=== PATIENT | male | born 1980 | race Two or more races ===

== ENCOUNTER 2016-07-26 05:40 | Emergency (ER) | payer OTHER ==
[~2016-07-26] VITALS: Ht 177.8 cm; Wt 68.2 kg
[2016-07-26 05:43] VITALS: BP 114/73; PULSE 98; RESP 16; O2SAT 100
--- NOTE | 2016-07-26 06:14 | ED.REPORT ---
[facility] Illness Date of Service Jul 26, 2016 ED Provider: Desiree Alberts MD Pt is a 35 y.o. male who presents to the ED c/o right-sided throat pain onset 3 days ago. Pt states that the pain began as a sore throat and has progressively gotten worse and now radiates to his right jaw and right ear. He also reports associated neck pain, swelling, and chills. He does report that he has poor dentition and was using Orajel several days ago for a toothache, right-side, the pain has since resolved. Nursing Notes Stated Complaint: THROAT/EAR PAIN Chief Complaint: FLU/Cold Symptoms Nursing Notes Reviewed: Yes Allergies: Coded Allergies: No Known Allergies (Unverified , 07/26/16) Scheduled Amoxicillin (Amoxicillin) 500 Mg Capsule 500 MG PO TID General Time Seen by Provider: 06:13 Chief Complaint Sore throat Hx Obtained From: Patient Arrived By: Walk-in Onset Occurred: 3 days ago Symptom Duration: Since onset Progression Since Onset: Gradually worsening Severity: Current: Moderate Severity: Maximum: Severe Recent Healthcare: No recent doctor visit, No recent hospitalization Similar Sx Previous: No Past Medical History Past Medical History None reported Past Surgical History None reported Smoking History Current Every Day Smoker Social History Drug Use: THC Ambulatory Status Independent Review of Systems Constitutional: Reports: Chills Ears / Nose / Throat: Reports: Earache right, Mouth pain, Sore throat, Throat pain Musculoskeletal: Reports: Neck pain (with swelling) Complete sys rev & neg: except as marked. Physical Exam Initial Vital Signs Vital Signs (First) Date Time Temp Pulse Resp B/P Pulse Ox O2 Delivery O2 Flow Rate FiO2 07/26/16 05:43 37.2 98 16 114/73 100 Room Air Initial VS: Reviewed Head / Eyes: Atraumatic, Normocephalic Abdomen / GI: No distention Extremities: Vascular intact, Neuro intact Psychiatric: Mood/affect normal, Behavior normal, Normal thought content General/Constitutional: Awake, Alert, No acute distress, Well appearing, Well developed, Well hydrated, Well nourished, Not toxic appearing Neck: Atraumatic Soft Tissue Neck: Positive: Swelling present... 4x3cm swollen lymphnode to angle of jaw, right. Respiratory / Chest: Atraumatic, Breath sounds NL, Breath sounds = bilat, No respiratory distress, No wheezing Cardiovascular: Heart rate NL, Regular rhythm, Heart sounds NL, Peripheral circulation NL No murmurs with careful auscultation Skin: Atraumatic, Color NL, Warm, Dry, Intact Well perfused Neurologic: Oriented X3, Speech NL ENT: Atraumatic, Tympanic membs NL, Ext aud canal NL Dental / Gums: Positive: Decay single tooth (2 and 31), Tooth fracture (2) Trauma - ENT Specific: Positive: Dentition fracture... Fullness to right peritonsillar pillar Erythema to gums surrounding teeth 2 and 31, no abscess present. Interpretation & Diagnostics Interpretation & Diagnostics: rapid strep neg throat cx negative Lab Results Interpretation Result Diagram: 07/26/16 0700 07/26/16 0700 Test 07/26/16 07:00 White Blood Count 11.1th/mm3 (3.8-10.1) Red Blood Count 4.90mil/mm3 (4.40-5.80) Hemoglobin 16.9g/dL (13.8-17.2) Hematocrit 49.0% (41.0-50.0) Mean Corpuscular Volume 100.0fL (81-100) Mean Corpuscular Hemoglobin 34.5pg (27.0-35.0) Mean Corpuscular Hemoglobin Concent 34.5% (32.0-37.0) Red Cell Distribution Width 14.6% (12.3-15.4) Platelet Count 172bil/L (150-400) Neutrophils (%) (Auto) 76.0% (40-74) Lymphocytes (%) (Auto) 11.9% (14-46) Monocytes (%) (Auto) 11.0% (4-12) Eosinophils (%) (Auto) 0.3% (0-5) Basophils (%) (Auto) 0.4% (0-3) Sodium Level 135mEq/L (134-144) Potassium Level 4.1mEq/L (3.5-5.2) Chloride Level 98mEq/L (97-108) Carbon Dioxide Level 20mmol/L (18-29) Blood Urea Nitrogen 3mg/dL (6-20) Creatinine 0.67mg/dL (0.76-1.27) Estimat Glomerular Filtration Rate 145mL/min (>59) Glucose Level 113mg/dL (60-99) Calcium Level 8.8mg/dL (8.5-10.1) Total Bilirubin 0.8mg/dL (0.0-1.2) Aspartate Amino Transf (AST/SGOT) 39U/L (0-50) Alanine Aminotransferase (ALT/SGPT) 26U/L (0-44) Alkaline Phosphatase 145U/L (25-150) Total Protein 7.4g/dL (6.4-8.4) Albumin 3.4g/dL (3.4-5.0) Re-Evaluation & MDM Source of Hx: Old records Re-Evaluation/Progress : Time of Eval: 08:56 Re-Evaluation/Progress Note: Pt rechecked. Discussed plan for discharge, pt understands and agrees with plan. Counseled Regarding: Diagnosis, Need for follow-up, When/why to return to ED Patient Discharge & Departure Impression: Primary Impression: Peritonsillar abscess Disposition: Home Discharge Condition All VS Reviewed: Yes Condition: Improved Additional Instructions: Thank you for entrusting us with you care today. It appears that you might be developing a peritonsillar abscess. We did a throat culture, you will be called if we need to change antibiotics. I have given you a 10 day course of Amoxicillin, take three times a day. Use ibuprofen as directed for pain. I recommend you follow-up this week with your primary care provider and also schedule an appointment with your dentist. Return if you develop a fever, have difficulty swallowing, breathing, or any new or worsening symptoms. I hope you start feeling better soon! Referrals: [facility] (PCP) [facility] [place] Attestation Portions of this note were transcribed by Berto Weiss. I, Dr. Alberts personally performed the history, physical exam and medical decision-making; I reviewed and confirmed the accuracy of the information in the transcribed note. Signed by: Juana Zhang, 07/26/16 and 0900 copies to: [facility] Desiree Alberts MD Jul 26, 2016 06:14 BERTO WEISS Jul 26, 2016 06:18
[2016-07-26] MEDS ORDERED: cefTRIAXone Inj 2,000 MG in Dextrose 5% Minibag Plus 50 ML IV ONE (06:35)
[2016-07-26 08:24] LABS: BASOPHILS % (AUTO) 0.4 % (0-3); EOSINOPHILS % (AUTO) 0.3 % (0-5); Mean Corpuscular Hemoglobin 34.5 pg (27.0-35.0); Platelet Count 172 bil/L (150-400)
[2016-07-26] MEDS ORDERED: AMOX500C2 PO (08:59)
[2016-07-26 09:12] VITALS: BP 109/60; PULSE 63; RESP 16; O2SAT 100
== END 2016-07-26 09:17 | disposition home or self-care (01) ==
LOC: SED 05:40
DX: J36 Peritonsillar abscess (principal); F17.200 Nicotine dependence, unspecified, uncomplicated
CPT/HCPCS: 36415; 80053; 85025; 87081; 87147; 87880; 96365; 96375; 99284; J0696; J1885